=== PATIENT | female | born 1950 | race Caucasian/White ===

== ENCOUNTER → 2017-11-15 09:53 | Outpatient (CLI) | payer MEDICARE, BC, SELFPAY ==
[2017-11-15 12:34] LABS: Absolute Lymphocyte Count 1.42 X10^3/ul (0.83-4.51); Absolute Neutrophil Count 3.7 X10^3/uL (2.0-7.7); Basophil# 0.05 X10^3/uL; Basophil% 0.8 % (0-1); Eosinophils% 3.4 % (0-5); Hemoglobin 14.4 g/dl (12.0-15.0); Lymphocyte # 1.42 X10^3/ul (4.0); Lymphocyte % 23.8 % (19-41); Mean Corp Hgb Conc 34.3 g/gl (32-36); Mean Corpuscular Hgb 33.6 pg (27.0-32.0); Mean Corpuscular Volume 98.1 fL (81-99); Mean Platelet Vol. 10.4 fl (6.2-12.0); Monocyte# 0.57 X10^3/uL; Monocyte% 9.5 % (0-10); Neutrophil # 3.72 X10^3/uL (2.7-7.7); Neutrophil % 62.3 % (47-70); Platelet Count 273 K/mm3 (150-450); RBC Distribution Width CV 13.4 % (11.6-14.6); RBC Distribution Width SD 46.8 fl (35.1-43.9); Red Blood Count 4.28 M/mm3 (4.2-5.4)
[2017-11-15 12:36] LABS: POSITIVE COUNT NO; POSITIVE DIFFERENTIAL NO; POSITIVE MORPHOLOGY NO
[2017-11-15 12:49] LABS: ALB/GLOB Ratio 1.1 RATIO (0.9-2.4); AST(SGOT) 17 U/L (15-37); Alanine Aminotransfer ALT/SGPT 35 U/L (13-56); Albumin, Serum 3.7 g/dL (3.2-5.0); Alkaline Phosphatase 90 U/L (45-117); Anion Gap 7 (5-15); BUN 13 mg/dL (7-18); BUN/Creat Ratio 14.9 RATIO (10-20); Calcium,Total 8.7 mg/dL (8.5-10.1); Chloride 106 mmol/L (98-107); Creatinine, Serum 0.87 mg/dL (0.55-1.02); EST Glomerular Filtration Rate 69 mL/min (>60); Est Glom Filt Rate - Afr Amer 83 mL/min (>60); Globulin 3.4 g/dL (2.2-4.2); Glucose 90 mg/dL (74-106); Potassium 4.2 mmol/L (3.5-5.1); Protein, Total 7.1 g/dL (6.4-8.2); Sodium Level 143 mmol/L (136-145)
== END ==
PROVIDERS: Family Provider Nurse Practitioner; PCP Nurse Practitioner; Visit Provider Internal Medicine Rheumatology
DX: M06.00 Rheumatoid arthritis without rheumatoid factor, unspecified site (principal); Z79.899 Other long term (current) drug therapy; M79.7 Fibromyalgia; M17.0 Bilateral primary osteoarthritis of knee; M18.0 Bilateral primary osteoarthritis of first carpometacarpal joints
CPT/HCPCS: 36415; 80053; 85025

== ENCOUNTER → 2018-11-01 21:43 | Outpatient (CLI) | payer MEDICARE, BC, SELFPAY ==
[2018-11-01 15:04] VITALS: BMI 32.3
[2018-11-01 21:52] LABS: Absolute Lymphocyte Count 1.41 X10^3/ul (0.83-4.51); Absolute Neutrophil Count 3.7 X10^3/uL (2.0-7.7); Basophil# 0.05 X10^3/uL; Basophil% 0.8 % (0-1); Eosinophil# 0.14 X10^3/uL; Eosinophils% 2.4 % (0-5); Hematocrit 41.4 % (37-47); Hemoglobin 14.2 g/dl (12.0-15.0); Lymphocyte # 1.41 X10^3/ul (4.0); Lymphocyte % 23.7 % (19-41); Mean Corp Hgb Conc 34.3 g/gl (32-36); Mean Corpuscular Hgb 33.9 pg (27.0-32.0); Mean Corpuscular Volume 98.8 fL (81-99); Mean Platelet Vol. 10.1 fl (6.2-12.0); Monocyte% 10.1 % (0-10); Neutrophil # 3.72 X10^3/uL (2.7-7.7); Neutrophil % 62.7 % (47-70); Platelet Count 255 K/mm3 (150-450); RBC Distribution Width CV 13.3 % (11.6-14.6); RBC Distribution Width SD 47.7 fl (35.1-43.9); Red Blood Count 4.19 M/mm3 (4.2-5.4); White Blood Count 5.9 K/mm3 (4.4-11.0)
[2018-11-01 21:54] LABS: POSITIVE COUNT NO; POSITIVE DIFFERENTIAL NO; POSITIVE MORPHOLOGY NO
[2018-11-01 22:07] LABS: ALB/GLOB Ratio 1.2 RATIO (0.9-2.4); AST(SGOT) 23 U/L (15-37); Alanine Aminotransfer ALT/SGPT 39 U/L (13-56); Albumin, Serum 3.9 g/dL (3.2-5.0); Alkaline Phosphatase 76 U/L (45-117); Anion Gap 8 (5-15); BUN 16 mg/dL (7-18); BUN/Creat Ratio 17.7 RATIO (10-20); Calcium,Total 8.6 mg/dL (8.5-10.1); Chloride 105 mmol/L (98-107); Cholesterol 133 mg/dL (200); EST Glomerular Filtration Rate 66 mL/min (>60); Est Glom Filt Rate - Afr Amer 80 mL/min (>60); Globulin 3.2 g/dL (2.2-4.2); Glucose 80 mg/dL (74-106); High Density Lipoprotein 50 mg/dL; Protein, Total 7.1 g/dL (6.4-8.2); Sodium Level 142 mmol/L (136-145); Triglycerides 59 mg/dL; Very Low Density Lipoprotein 12 mg/dL (5-40)
== END ==
PROVIDERS: Referring Provider Nurse Practitioner; Visit Provider Nurse Practitioner
DX: E78.5 Hyperlipidemia, unspecified (principal); I10 Essential (primary) hypertension
CPT/HCPCS: 80053; 80061; 85025

== ENCOUNTER → 2019-02-13 08:35 | Outpatient (CLI) | payer MEDICARE, BC, SELFPAY ==
[2019-01-30 15:39] VITALS: BMI 31.8
[2019-02-13 10:06] LABS: Absolute Lymphocyte Count 1.84 X10^3/ul (0.83-4.51); Absolute Neutrophil Count 4.8 X10^3/uL (2.0-7.7); Basophil# 0.08 X10^3/uL; Basophil% 1.1 % (0-1); Eosinophil# 0.17 X10^3/uL; Eosinophils% 2.3 % (0-5); Hematocrit 43.4 % (37-47); Hemoglobin 14.7 g/dl (12.0-15.0); Lymphocyte # 1.84 X10^3/ul (4.0); Lymphocyte % 24.7 % (19-41); Mean Corp Hgb Conc 33.9 g/gl (32-36); Mean Corpuscular Hgb 33.7 pg (27.0-32.0); Mean Corpuscular Volume 99.5 fL (81-99); Mean Platelet Vol. 10.3 fl (6.2-12.0); Monocyte# 0.59 X10^3/uL; Monocyte% 7.9 % (0-10); Neutrophil # 4.77 X10^3/uL (2.7-7.7); Neutrophil % 63.9 % (47-70); Platelet Count 254 K/mm3 (150-450); RBC Distribution Width CV 12.4 % (11.6-14.6); RBC Distribution Width SD 45.2 fl (35.1-43.9); Red Blood Count 4.36 M/mm3 (4.2-5.4); White Blood Count 7.5 K/mm3 (4.4-11.0)
[2019-02-13 10:19] LABS: POSITIVE COUNT NO; POSITIVE DIFFERENTIAL NO; POSITIVE MORPHOLOGY NO
[2019-02-13 10:35] LABS: ALB/GLOB Ratio 1.2 RATIO (0.9-2.4); AST(SGOT) 19 U/L (15-37); Alanine Aminotransfer ALT/SGPT 39 U/L (13-56); Albumin, Serum 3.7 g/dL (3.2-5.0); Alkaline Phosphatase 76 U/L (45-117); Anion Gap 2 (5-15); BUN 10 mg/dL (7-18); BUN/Creat Ratio 10.5 RATIO (10-20); Calcium,Total 8.9 mg/dL (8.5-10.1); Chloride 110 mmol/L (98-107); Creatinine, Serum 0.95 mg/dL (0.55-1.02); EST Glomerular Filtration Rate 63 mL/min (>60); Est Glom Filt Rate - Afr Amer 76 mL/min (>60); Globulin 3.1 g/dL (2.2-4.2); Glucose 107 mg/dL (74-106); Potassium 3.6 mmol/L (3.5-5.1); Protein, Total 6.8 g/dL (6.4-8.2); Sodium Level 142 mmol/L (136-145)
== END ==
PROVIDERS: Family Provider Nurse Practitioner; PCP Nurse Practitioner; Referring Provider Internal Medicine Rheumatology; Visit Provider Internal Medicine Rheumatology
DX: M06.00 Rheumatoid arthritis without rheumatoid factor, unspecified site (principal); Z79.899 Other long term (current) drug therapy; M79.7 Fibromyalgia; M25.511 Pain in right shoulder; M17.0 Bilateral primary osteoarthritis of knee; M18.0 Bilateral primary osteoarthritis of first carpometacarpal joints
CPT/HCPCS: 36415; 80053; 85025

== ENCOUNTER → 2020-11-18 21:43 | Outpatient (CLI) | payer MEDICARE, BC, SELFPAY ==
[2020-08-18 16:25] VITALS: BMI 30.3
[2020-11-18 22:04] LABS: ALB/GLOB Ratio 1.3 RATIO (0.9-2.4); AST(SGOT) 17 U/L (15-37); Alanine Aminotransfer ALT/SGPT 28 U/L (13-56); Albumin, Serum 3.9 g/dL (3.2-5.0); Alkaline Phosphatase 96 U/L (45-117); Anion Gap 4 (5-15); BUN 15 mg/dL (7-18); CRP, High Sensitivity Cardiac 1.21 mg/L; Calcium,Total 8.7 mg/dL (8.5-10.1); Chloride 105 mmol/L (98-107); Creatinine, Serum 0.94 mg/dL (0.55-1.02); EST Glomerular Filtration Rate 63 mL/min (>60); Est Glom Filt Rate - Afr Amer 76 mL/min (>60); Globulin 3.1 g/dL (2.2-4.2); Glucose 108 mg/dL (74-106); Sodium Level 138 mmol/L (136-145)
== END ==
PROVIDERS: PCP Nurse Practitioner; Referring Provider Nurse Practitioner; Visit Provider Nurse Practitioner
DX: I10 Essential (primary) hypertension (principal); R73.9 Hyperglycemia, unspecified
CPT/HCPCS: 80053; 86141

== ENCOUNTER → 2021-01-04 09:56 | Outpatient (CLI) | payer MEDICARE, BC, SELFPAY ==
[2020-11-18 13:32] VITALS: BMI 32.4
[2021-01-04 12:34] LABS: Absolute Lymphocyte Count 1.66 X10^3/uL (0.83-4.51); Absolute Neutrophil Count 3.4 X10^3/uL (2.0-7.7); Basophil# 0.09 X10^3/uL; Basophil% 1.6 % (0-1); Eosinophil# 0.17 X10^3/uL; Eosinophils% 2.9 % (0-5); Hematocrit 43.4 % (37-47); Hemoglobin 14.6 g/dL (12.0-15.0); Lymphocyte # 1.66 X10^3/ul (4.0); Lymphocyte % 28.8 % (19-41); Mean Corp Hgb Conc 33.6 g/dL (32-36); Mean Corpuscular Hgb 32.7 pg (27.0-32.0); Mean Corpuscular Volume 97.1 fL (81-99); Mean Platelet Vol. 10.8 fl (6.2-12.0); Monocyte# 0.39 X10^3/uL; Monocyte% 6.8 % (0-10); NRBC Flagged by Analyzer 0 % (0-5); Neutrophil # 3.44 X10^3/uL (2.7-7.7); Neutrophil % 59.6 % (47-70); Platelet Count 295 K/mm3 (150-450); RBC Distribution Width CV 11.8 % (11.6-14.6); RBC Distribution Width SD 42.5 fl (35.1-43.9); Red Blood Count 4.47 M/mm3 (4.2-5.4); White Blood Count 5.8 K/mm3 (4.4-11.0)
[2021-01-04 13:03] LABS: ALB/GLOB Ratio 1.1 RATIO (0.9-2.4); AST(SGOT) 13 U/L (15-37); Alanine Aminotransfer ALT/SGPT 25 U/L (13-56); Albumin, Serum 3.8 g/dL (3.2-5.0); Alkaline Phosphatase 97 U/L (45-117); Anion Gap 5 (5-15); BUN 12 mg/dL (7-18); BUN/Creat Ratio 13.2 RATIO (10-20); Chloride 105 mmol/L (98-107); Creatinine, Serum 0.91 mg/dL (0.55-1.02); EST Glomerular Filtration Rate 65 mL/min (>60); Est Glom Filt Rate - Afr Amer 79 mL/min (>60); Globulin 3.4 g/dL (2.2-4.2); Glucose 106 mg/dL (74-106); Potassium 3.9 mmol/L (3.5-5.1); Protein, Total 7.2 g/dL (6.4-8.2); Sodium Level 140 mmol/L (136-145)
== END ==
PROVIDERS: PCP Nurse Practitioner; Referring Provider Internal Medicine Rheumatology; Visit Provider Internal Medicine Rheumatology
DX: M06.00 Rheumatoid arthritis without rheumatoid factor, unspecified site (principal); Z79.899 Other long term (current) drug therapy; M79.7 Fibromyalgia; M17.0 Bilateral primary osteoarthritis of knee; M47.892 Other spondylosis, cervical region; M18.0 Bilateral primary osteoarthritis of first carpometacarpal joints
CPT/HCPCS: 36415; 80053; 85025

== ENCOUNTER → 2022-02-28 | Outpatient (CLI) | payer MEDICARE, BC, SELFPAY ==
[2022-02-28 23:16] LABS: ALB/GLOB Ratio 1.3 RATIO (0.9-2.4); AST(SGOT) 17 U/L (15-37); Alanine Aminotransfer ALT/SGPT 29 U/L (13-56); Albumin, Serum 3.9 g/dL (3.2-5.0); Alkaline Phosphatase 82 U/L (45-117); Anion Gap 8 (5-15); BUN 11 mg/dL (7-18); BUN/Creat Ratio 12.1 RATIO (10-20); Calcium,Total 8.9 mg/dL (8.5-10.1); Chloride 106 mmol/L (98-107); Cholesterol 163 mg/dL (200); Creatinine, Serum 0.91 mg/dL (0.55-1.02); EST Glomerular Filtration Rate 65 mL/min (>60); Est Glom Filt Rate - Afr Amer 79 mL/min (>60); Globulin 3.1 g/dL (2.2-4.2); Glucose 112 mg/dL (74-106); High Density Lipoprotein 64 mg/dL; Potassium 3.6 mmol/L (3.5-5.1); Sodium Level 139 mmol/L (136-145); Triglycerides 180 mg/dL; Very Low Density Lipoprotein 36 mg/dL (5-40)
== END | disposition home or self-care (01) ==
PROVIDERS: PCP Nurse Practitioner; Referring Provider Nurse Practitioner; Visit Provider Nurse Practitioner
DX: I10 Essential (primary) hypertension (principal)
CPT/HCPCS: 80053; 80061

== ENCOUNTER → 2022-10-05 | Outpatient (CLI) | payer MEDICARE, BC, SELFPAY ==
[2022-10-05 22:38] LABS: Vitamin B12 463 pg/mL (211-911)
[2022-10-05 22:41] LABS: ALB/GLOB Ratio 1.2 RATIO (0.9-2.4); AST(SGOT) 18 U/L (15-37); Alanine Aminotransfer ALT/SGPT 33 U/L (13-56); Alkaline Phosphatase 83 U/L (45-117); Anion Gap 8 (5-15); BUN 15 mg/dL (7-18); BUN/Creat Ratio 16.9 RATIO (10-20); Calcium,Total 8.8 mg/dL (8.5-10.1); Chloride 104 mmol/L (98-107); Creatinine, Serum 0.89 mg/dL (0.55-1.02); EST Glomerular Filtration Rate 67 mL/min (>60); Est Glom Filt Rate - Afr Amer 81 mL/min (>60); Globulin 3.4 g/dL (2.2-4.2); Glucose 97 mg/dL (74-106); Protein, Total 7.4 g/dL (6.4-8.2); Sodium Level 140 mmol/L (136-145); Thyroid Stim Hormone (TSH) 0.79 uIU/mL (0.358-3.74)
[2022-10-07 15:08] LABS: Endomysial Antibody IgA Negative (Negative)
[2022-10-07 17:15] LABS: Deamidated Gliadin IgA 4 units (0-19); Deamidated Gliadin IgG 6 units (0-19); Immunoglobulin A 229 mg/dL (87-352); t-Transglutaminase IgA <2 U/mL (0-3)
== END | disposition home or self-care (01) ==
PROVIDERS: PCP Nurse Practitioner; Visit Provider Nurse Practitioner
DX: K21.9 Gastro-esophageal reflux disease without esophagitis (principal); E53.8 Deficiency of other specified B group vitamins; I10 Essential (primary) hypertension; R19.7 Diarrhea, unspecified; R63.5 Abnormal weight gain; R73.9 Hyperglycemia, unspecified
CPT/HCPCS: 80053; 82607; 82784; 83036; 83516; 84443; 86255

== ENCOUNTER → 2023-03-23 | Outpatient (CLI) | payer MEDICARE, BC, SELFPAY ==
[2023-03-23 20:53] LABS: Absolute Lymphocyte Count 1.83 X10^3/uL (0.83-4.51); Absolute Neutrophil Count 3.9 X10^3/uL (2.0-7.7); Basophil# 0.08 X10^3/uL; Basophil% 1.2 % (0-1); Eosinophil# 0.16 X10^3/uL; Eosinophils% 2.5 % (0-5); Hematocrit 40.1 % (37-47); Lymphocyte # 1.83 X10^3/ul (0.83-4.51); Lymphocyte % 28.4 % (19-41); Mean Corp Hgb Conc 34.9 g/dL (32-36); Mean Corpuscular Hgb 32.6 pg (27.0-32.0); Mean Corpuscular Volume 93.3 fL (81-99); Mean Platelet Vol. 11.5 fl (6.2-12.0); Monocyte# 0.48 X10^3/uL; Monocyte% 7.4 % (0-10); NRBC Flagged by Analyzer 0 % (0-5); Neutrophil # 3.88 X10^3/uL (2.7-7.7); Neutrophil % 60.2 % (47-70); Platelet Count 240 K/mm3 (150-450); RBC Distribution Width SD 41.3 fl (35.1-43.9); White Blood Count 6.5 K/mm3 (4.4-11.0)
[2023-03-23 21:16] LABS: ALB/GLOB Ratio 1.1 RATIO (0.9-2.4); AST(SGOT) 17 U/L (15-37); Alanine Aminotransfer ALT/SGPT 23 U/L (13-56); Albumin, Serum 3.7 g/dL (3.2-5.0); Alkaline Phosphatase 87 U/L (45-117); Anion Gap 7 (5-15); BUN 11 mg/dL (7-18); BUN/Creat Ratio 12.2 RATIO (10-20); Calcium,Total 8.8 mg/dL (8.5-10.1); Chloride 107 mmol/L (98-107); Cholesterol 128 mg/dL (200); EST Glomerular Filtration Rate 65 mL/min (>60); Est Glom Filt Rate - Afr Amer 79 mL/min (>60); Globulin 3.3 g/dL (2.2-4.2); Glucose 128 mg/dL (74-106); High Density Lipoprotein 62 mg/dL; Potassium 3.6 mmol/L (3.5-5.1); Sodium Level 140 mmol/L (136-145); Thyroid Stim Hormone (TSH) 0.89 uIU/mL (0.358-3.74); Triglycerides 145 mg/dL; Very Low Density Lipoprotein 29 mg/dL (5-40)
== END | disposition home or self-care (01) ==
PROVIDERS: PCP Nurse Practitioner; Referring Provider Nurse Practitioner; Visit Provider Nurse Practitioner
DX: I10 Essential (primary) hypertension (principal); R63.5 Abnormal weight gain; K21.9 Gastro-esophageal reflux disease without esophagitis; E55.9 Vitamin D deficiency, unspecified; J40 Bronchitis, not specified as acute or chronic
CPT/HCPCS: 80053; 80061; 82652; 84443; 85025

== ENCOUNTER → 2023-10-27 | Outpatient (CLI) | payer MEDICARE, BC, SELFPAY ==
--- OUTSIDE RECORDS SUMMARY | 2023-10-27 20:49 | XMS RPT_ITS | CCD ---
Author Name Unknown Address [id number] [place] [address] Organization [facility] Care Team Providers Care Order Analyst Name Role Phone CHESTERLARRY Unavailable Unavailable [facility] Unavailable Unavailable AMANDA, RENY Unavailable Unavailable Amanda, Reny L Unavailable Unavailable Unavailable Amanda PIGMENT PROCESSOR.CUSTOMER ORDER CLERK, Reny L Primary Care Provide r Amanda PIGMENT PROCESSOR.CUSTOMER ORDER CLERK, Reny L Primary Care Provide r Amanda PIGMENT PROCESSOR.CUSTOMER ORDER CLERK, Reny L Primary Care Provide r Ms. Tahira Villalobos Attending Dr. Teresa Ortiz Referring Unavail able Amanda, Ms. Reny L Primary Care Unavailab le AMANDA, RENY L Primary Care Unavailable VELLANKI, LON L Referring Unavailable AMANDA, RENY L Primary Care Unavailable VELLANKI, LON L Referring Unavailable AMANDA, RENY L Primary Care Unavailable AMANDA, RENY L Primary Care Unavailable AMANDA, RENY L Primary Care Unavailable TARIK MAX Referring Unavailable AMANDA, RENY L Primary Care Unavailable VELLANKI, LON L Referring Unavailable Allergies Allergy Classification Reported Allergen(s) Allergy Type Date of Onset Reaction(s) Facility (8 sources) cephalexin; Translations: [CEPHALEXIN] Drug Allergy 10-31-2013 Unknown [facility] Repository (8 sources) iodine; Translations: [IODINE] Drug Allergy 12-07-2011 Unknown [facility] Repository Medications Completed/Discontinued Medications Medication Drug Class(es) Dates Sig (Normalized) Sig (Original) 0.8 ml adalimumab 50 mg/ml auto-injector (8 sources) Tumor Necrosis Factor Tr Start: 03-06-2015 HUMIRA PEN 40 mg/0.8 mL pnkt Problems Active Problems Problem Classification Problem Date Documented Date Episodic/Chronic Genitourinary symptoms and ill-defined conditions (6 sources) Female stress incontinence; Translations: [Stress incontinence (female) (male)] Onset: 10-31-2013 10-31-2013 Chronic Menopausal disorders (13 sources) Menopausal symptom; Translations: [Menopausal and female climacteric states] Onset: 10-31-2013 Chronic Osteoarthritis (5 sources) Polyosteoarthritis, unspecified; Translations: [Unilateral primary osteoarthritis of first carpometacarpal joint, right hand] Onset: 11-28-2022 Chronic Osteoporosis (7 sources) Senile osteoporosis; Translations: [Age-related osteoporosis without current pathological fracture] Onset: 12-31-2021 Chronic Other aftercare (2 sources) Other termination clerk (current) drug therapy; Translations: [On angiotensin receptor blockers (ARB)] Onset: 08-30-2022 Episodic Other connective tissue disease (2 sources) Fibromyalgia; Translations: [Scapulohumeral fibrositis] Onset: 11-28-2022 Episodic Other ear and sense organ disorders (4 sources) Sensorineural hearing loss, bilateral; Translations: [Sensorineural hearing loss, bilateral] Chronic Other ear and sense organ disorders (6 sources) Chronic otitis externa; Translations: [Unspecified chronic otitis externa, unspecified ear] Onset: 01-09-2012 01-09-2012 Chronic Other ear and sense organ disorders (6 sources) Hearing loss; Translations: [Unspecified hearing loss, unspecified ear] Onset: 01-09-2012 01-09-2012 Chronic Other ear and sense organ disorders (1 source) Sensorineural hearing loss, bilateral; Translations: [Sensorineural hearing loss, bilateral] Onset: 05-09-2023 Chronic Other female genital disorders (1 source) Superficial pain on intercourse; Translations: [Superficial (introital) dyspareunia] Chronic Other female genital disorders (1 source) Vaginal dryness; Translations: [Other specified noninflammatory disorders of vagina] Episodic Rheumatoid arthritis and related disease (3 sources) Rheumatoid arthritis without rheumatoid factor, unspecified site; Translations: [Seronegative rheumatoid arthritis (HCC)] Onset: 08-30-2022 Chronic Spondylosis; intervertebral disc disorders; other back problems (1 source) Other spondylosis, cervical region; Translations: [Other spondylosis, cervical region] Onset: 11-28-2022 Chronic Sprains and strains (2 sources) Disorder of thoracic segment of trunk; Translations: [Sprain of thoracic] Episodic Unclassified (1 source) Unknown / UNK(Unknown) Onset: 11-22-2017 Past or Other Problems Problem Classification Problem Date Documented Da te Episodic/Chronic Mood disorders (6 sources) Mood swings; Translations: [Emotional lability] Onset: 01-15-2014 01-15-2014 Episodic Other ear and sense organ disorders (8 sources) Impacted cerumen; Translations: [Impacted cerumen] Onset: 01-09-2012 01-09-2012 Episodic Other screening for suspected conditions (not mental disorders or infectious disease) (9 sources) Decreased testosterone level ; Translations: [Other specified abnormal findings of blood chemistry] Onset: 01-07-2015 01-07-2015 Episodic Other skin disorders (6 sources) Scar; Translations: [Scar conditions and fibrosis of skin] Onset: 06-16-2014 06-16-2014 Episodic Residual codes; unclassified (13 sources) Reduced libido; Translations: [Decreased libido] Onset: 10-31-2013 Episodic Unclassified (1 source) Other hammer toe(s) (acquired), right foot Onset: 11-22-2017 Results Test Name Value Interpretation Reference Range Facil ity Encounters Encounter Date Encounter Type Care Provider Facility Start: 10-26-2023 Refill Tarik marquez MD Work Phone: Obstetrics/Gynecology Procedures Date Procedure Procedure Detail Performing Clinician Start: 11-26-2021 Mammography Tarik rutherford MD Work Phone: Start: 12-17-2013 Lipid 1996 panel - S willam or Plasma Tarik Max MD Work Phone: Plan of Treatment Date Care Activity Detail Author Start: 06-04-2028 Urine microalbumin profile [facility] Start: 08-22-2026 Diabetes Screening Diabetes Screening [facility] Start: 02-28-2026 DIABETES SCREEN DIABETES SCREEN [facility] Start: 11-28-2025 DIABETES SCREEN DIABETES SCREEN [facility] Start: 06-13-2025 DIABETES SCREEN DIABETES SCREEN [facility] Start: 12-15-2024 DIABETES SCREEN DIABETES SCREEN [facility] Start: 02-29-2024 Screening for malignant neoplasm of breast Mammogram Screening [facility] Start: 09-25-2023 Advance Directive Discussion Advance Directive Discussion [facility] Start: 09-25-2023 Depression Assessment Depression Assessment [facility] Start: 05-26-2023 Covid-19 Vaccine () Covid-19 Vaccine () [facility] Start: 11-26-2022 Mammography MAMMOGRAM [facility] Start: 09-25-2022 ADVANCE DIRECTIVE DISCUSSION ADVANCE DIRECTIVE DISCUSSION [facility] Start: 09-25-2022 DEPRESSION ASSESSMENT DEPRESSION ASSESSMENT [facility] Start: 05-26-2022 Influenza vaccination INFLUENZA (#1) [facility] Start: 05-10-2022 CIADVANCED, Provider: Yajaira Weinstein, Status: Pen, Time: 1:00 PM CIADVANCED, Provider: Yajaira Weinstein, Status: Pen, Time: 1:00 PM [id number] Work Phone: Start: 02-04-2022 End: 03-16-2022 Basic metabolic 2000 panel - Serum or Plasma BASIC METABOLIC PNL Lab Routine Senile osteoporosis Expected: 02/04/2022 (Approximate), Expires: 03/16/2022 [facility] Work Phone: Immunizations Immunization Date Immunization Notes Care Provider Adams barton 06-04-2018 tetanus toxoid, redu francisco diphtheria toxoid, and acellular pertussis vaccine, adsorbed Tarik Max MD Work Phone: [facility] Payers Date Payer Category Payer Medicare MEDICARE MEDICAR E A AND B [id number] 2013-Present [phone] [place] [address] Medicare [id number] 2013 Medicare MEDICARE MEDICAR E A AND B [id number] 2013-Present [phone] [place] [address] Medicare [id number] 2013 Medicare [id number] 2009 Unknown 2009 Unknown BRITTANY BRITTANY BC BS FEP PPO [id number] 2009-Present [phone] [address] [place] [address] PPO [id number] 2009 Unknown [id number] 1950 Unknown [id number] Medicare [id number] Social History Date Type Detail Facility Start: 12-31-2021 End: 02-28-2023 Drinks wine Drinks wine [facility] Start: 12-31-2021 Alcohol intake Current drinke r of alcohol (finding) [facility] Start: 1950 Sex Assigned At Not on file [facility] Start: 12-05-2021 End: 06-13-2022 Exposure to SARS-CoV-2 (event) Not sure [facility] Start: 12-31-2021 End: 02-28-2023 Tobacco use panel [facility] PHQ2 Score 0 [facility] c Clinical Notes 11-26-2021 to 02-28-2023 NAINA EstradaR) - 02/28/2023 11:00 AM EDTAddendum Note - Faina Kearns RN - 01/23/2023 9:40 AM EDTTelephone Encounter - Faina Kearns RN - 01/23/2023 9:40 AM EDTPatient Instructions Note Date & Type Note Facility 02-28-2023 Note HNO ID: [id number] Author: SHERWIN Estrada) Service: Radiology Author Type: Technologist Type: Progress Notes Filed: 02/28/2023 11:11 AM Note Text: Radiology Service Progress Note PATIENT NAME: Yeison Grover DATE OF SERVICE: February 28, 2023 TIME: 11:11 AM PATIENT IDENTITY VERIFICATION COMPLETED USING TWO (2) IDENTIFIERS: Name and Date of confirmed by patient verbally. FALL SCREENING: Has the patient had 2 falls in the last year or 1 fall with injury or currently using an Ambulatory Assistive Device (Walker, Cane, Wheelchair, Crutches, etc.)? No PATIENT GENDER DATA: Female. status: : No status: N/A PATIENT RELEVANT IMPLANT DATA REVIEWED: Not Applicable RADIOLOGY DEPARTMENT: Mammography PERIPHERAL IV DATA: Not applicable SIGNED BY: RT Sean(R) February 28, 2023 11:11 AM [facility] 02-28-2023 History of Presen t illness Narrative Radiology Service Progress Note PATIENT NAME: Yeison Grover DATE OF SERVICE: February 28, 2023 TIME: 11:11 AM PATIENT IDENTITY VERIFICATION COMPLETED USING TWO (2) IDENTIFIERS: Name and Date of confirmed by patient verbally. FALL SCREENING: Has the patient had 2 falls in the last year or 1 fall with injury or currently using an Ambulatory Assistive Device (Walker, Cane, Wheelchair, Crutches, etc.)? No PATIENT GENDER DATA: Female. status: : No status: N/A PATIENT RELEVANT IMPLANT DATA REVIEWED: Not Applicable RADIOLOGY DEPARTMENT: Mammography PERIPHERAL IV DATA: Not applicable SIGNED BY: RT Sean(Esperanza) February 28, 2023 11:11 AM documented in this encounter [facility] 01-23-2023 Miscellaneous Notes Addended by: FAINA KEARNS on: 01/23/2023 09:40 AM Modules accepted: Orders Order placed for Mammogram with jazmine. Faina Kearns RN Yeison needs an order for Mammogram. Thank you Emily De documented in this encounter [facility] 01-31-2022 Miscellaneous Notes Lai Warren, I just spoke to her. I apologize. Now she wants to do her own research before scheduling. I told her to let me know and then I will call you for scheduling. Faina Kearns RN Received a message from our Infusion Nurses to schedule Patient for her Reclast. When I called her just now, she was confused and had many questions that she said a nurse would call her and answer them for her. She declined to schedule an appointment until she spoke to a nurse. Can someone clinical call her to address her questions and then let me know and I can work to get her scheduled? Thanks, Irwin documented in this encounter [facility] 12-31-2021 Instructions Tarik Max MD - 12/31/2021 4:35 PM EDT Reclast (zoledronic acid) What is Reclast? Reclast is a medicine used to treat osteoporosis. Reclast strengthens bones by increasing bone mass, which decreases the chance of breaking bones (fractures). It belongs to a class of medicines known as bisphosphonates. Other bisphosphonates are Fosamax (alendronate), Actonel (risedronate), Boniva (ibandronate) and Aredia (pamidronate). What is Osteoporosis? Osteoporosis is thinning and weakness of bone. Throughout life, the body keeps bones strong by replacing old bone with new bone. In osteoporosis, however, the body removes bone faster than it is made. The result is bone loss and weakening. Weak bones are more likely to break. Osteoporosis is common in women after menopause and with increasing age. Other risk factors for osteoporosis are: A. white or oriental race B. slender stature (low weight relative to height) C. a family member with osteoporosis D. low calcium intake E. low vitamin D intake F. lack of weight-bearing exercise G. alcohol in excess H. cigarette smoking I. medicines that cause bone loss, like prednisone taken for >3 months Like high blood pressure, osteoporosis causes no symptoms. Persons with osteoporosis are more likely to break (fracture) their bones. Fractures most often occur in the hip, spine or wrist bones. Some spine fractures are painless but cause a gradual loss of height. More often, spine fractures are painful and cause severe disability. Fracture of osteoporotic bone can occur with only minimal injury, such fractures are called fragility fractures. Osteoporotic fractures can also occur with no injury at all, these are called spontaneous fractures. IMPORTANT: Reclast strengthens bone and decreases the risk of both fragility and spontaneous fractures. Reclast decreases fracture risk in the spine, hip and forearm. Reclast increases survival when given to patients who had had a recent hip fracture. Summary: No other bisphosphonate drug is as effective as Reclast. What are the ingredients of Reclast? Active ingredient: zoledronic acid, 5 mg per dose Inactive ingredients: mannitol, ASSISTED; sodium citrate; water How will I receive Reclast? Reclast is given by infusion into a vein (IV) that takes at least 30 minutes. Reclast is always infused by your doctor or nurse. Drink at least 2 glasses of fluid (such as water), within a few hours before receiving Reclast, as directed by your doctor. You may eat normally before your infusion. Reclast (zoledronic acid, 5 mg) is given only once a year. Before or after Reclast, your doctor may order a bone mineral density test to check your osteoporosis. What should I tell my doctor before receiving Reclast? Reclast may not be right for you if you: have kidney problems have a history of low blood calcium are not able to take daily calcium and vitamin D supplements had parathyroid or thyroid surgery (these glands are located in your neck) had sections of your intestine removed have asthma (wheezing) from taking aspirin have a planned dental surgery such as tooth extraction or implantation Tell your doctor about all the medicines you take, including prescription and nonprescription drugs, herbal supplements and vitamins. Some medicines may increase your chance for low blood calcium levels or kidney problems when used with Reclast. Especially tell your doctor if you are taking: Zometa: this is zoledronic acid, 4 mg a diuretic or water pill ; there are different kinds an antibiotic - Certain antibiotics called aminoglycosides may increase the effect of Reclast in lowering your blood calcium for a long period of time. What are the possible side effects of Reclast? Low blood calcium (hypocalcemia) - Symptoms may include numbness or tingling feeling (especially in the area around the mouth) or muscle spasms. Call your doctor right away if you notice any of these symptoms after receiving Reclast. Kidney problems - Your kidney function will be checked by a blood test before and several days after each dose of Reclast. You cannot receive Reclast if your kidney function is severely impaired. Reclast can cause kidney injury in normal persons if given too rapidly (10 minutes or less) and this risk is increased in persons with impaired kidney function. When kidney injury occurs, it is almost always reversible within 2-3 weeks after infusion. To decrease any risk to your kidneys, you should not take diuretics (water pills) within 48 hours of Reclast infusion. It is important to drink at least 2 glasses of liquid a few hours before receiving Reclast and you will receive 8 ounces of salt water by vein before Reclast is given. Jaw-bone problems (osteonecrosis of the jaw) - Jaw-bone injury has occurred in some patients who received zoledronic acid (as Zometa, 4 mg) multiple times over several months. These patients were treated with zoledronic acid for cancer that had spread to bone and caused a serious increase in blood calcium. Most (>70%) of the jaw injuries occurred in patients who had a tooth extraction or tooth implants after receiving zoledronic acid (Zometa) for hypercalcemia and cancer. There was NO jaw injury (osteonecrosis) in ~5000 patients treated with zoledronic acid (Reclast, 5 mg) for osteoporosis. You should not receive Reclast if you have had recent tooth extractions or dental implants, or if you are considering extractions or implants within six months after Reclast. Muscle, bone and joint pain, fever - A flu-like illness, fever, pain in your muscles or joints and headache can develop 1-2 days after Reclast infusion. A mild pain reliever such as ibuprofen or acetaminophen can reduce these symptoms. In a small percent of patients with Reclast flu joint and muscle pain can be severe and a stronger pain medication is necessary. The chance of getting these side effects decreases when Reclast treatment is repeated in a year. Irregular heartbeat - There might be a slight increased risk of developing an irregular heart rhythm called atrial fibrillation. In one large study of Reclast, there was ~ 2-fold increase in atrial fibrillation compared to placebo (salt water) but in another large study, there was no increase in atrial fibrillation. Ask your doctor if you have concerns about atrial fibrillation, or tell your doctor if you have heart palpitations. Immediate reactions - Some patients experience mild nausea or headache during the infusion of Reclast. These symptoms are treatable and transient. RARELY, zoledronic acid has caused acute shortness of breath, rapid heartbeat, hives, lightheadedness, itching and a drop in blood pressure. Inform the nurse or doctor immediately if you experience any of these symptoms during the infusion of Reclast. Miscellaneous - These are not all possible side effects of Reclast. If you have questions, talk to your doctor. Tell your doctor about a possible side effect that bothers you or does not go away. For more information, go to [email or web address] or call . documented in this encounter [facility] 12-31-2021 History of Presen t illness Narrative Yeison Grover is a 71 year old female who presents for a follow up for telephone encounter for the following issues:. 3 month follow up HRT call around 10:00 ok with phone follow up. wants to talk about bone density Vagifem twice a week since July. Estrace 1 mg daily since July Prior [facility] Subjective: No hot flashes, No night sweats. Vaginal dryness. Current Outpatient Medications on File Prior to Visit Medication Sig Estradiol (VAGIFEM) 10 mcg vaginal tablet Use 1 tablet vaginally two times a week. INTO LOWER 1/3 OF VAGINA TWICE A WEEK. estradiol (ESTRACE) 1 mg tablet Take 1 tablet by mouth once daily. ergocalciferol 50,000 unit capsule (VITAMIN D2, DRISDOL) Take one capsule by mouth twice weekly diltiazem CD (CARDIZEM CD, CARTIA XT) 180 mg 24 hr capsule HUMIRA PEN 40 mg/0.8 mL pnkt BUPROPION XL 300 mg 24 hr tablet Take 300 mg by mouth once daily. LOSARTAN 100 mg tablet OMEPRAZOLE 20 mg capsule lansoprazole (PREVACID) 15 mg ORAL capsule Take 15 mg by mouth once daily. hydroxychloroquine (PLAQUENIL) 200 mg ORAL tablet Take by mouth once daily. folic acid 1 mg ORAL tablet Take 1 mg by mouth once daily. methotrexate 2.5 mg ORAL tablet Take by mouth one time only. No current facility-administered medications on file prior to visit. PAST MEDICAL HISTORY Diagnosis Date Cystocele Hard of hearing Cochlear imlant Low testosterone level in female 01/07/2015 Nocturia Rheumatoid arthritis(714.0) AMAYA (stress urinary incontinence, female) Urethral instability Vaginal atrophy Being treated with Vagifem PAST SURGICAL HISTORY Procedure Laterality Date CHOLECYSTECTOMY HX 2011 Dr. Wiley. IMPLANT COCHLEAR DEVICE 05/2012 bilateral SOILA W/WO REMOVAL TUBE OVARY 2003 No family history on file. Social History Tobacco Use Smoking status: Never Smoker Smokeless tobacco: Never Used Substance Use Topics Alcohol use: Yes Comment: social Drug use: No Objective: There were no vitals taken for this visit. No LMP recorded (lmp unknown). Patient has had a hysterectomy. ALLERGIES Allergen Reactions Contrast Dye [Iodin* Unknown Keflex [Cephalexin] Unknown Bone density: RESULTS: Lumbar spine (L1-L4): 1.296 g/cm2 , T-score 1., Z-score 1.8 . Left Femoral Neck: 0.617 g/cm2 , T-score-3., Z-score-1.9 . This is 0.094 g/sq cm worse Left Total Hip: 0.838 g/cm2 , T-score-1.3, Z-score -0.5 . Right Femoral Neck: 0.75 g/cm2 , T-score -2.1, Z-score-1. . This is not significantly changed Right Total Hip: 0.912 g/cm2 , T-score-0.8, Z-score 0.1 . Prior bone density 2019 THE LOWEST T-SCORE IS -2.4 IN THE LEFT HIP 1) DIAGNOSIS (based on BMD alone): OSTEOPENIA Assessment: 1) new onset transition to osteoporosis 2) postmenopausal issues related to hot flashes night sweats vaginal dryness and impact on libido 3) off of Estratest and overall doing okay on estradiol 1 mg 4) has forgotten Vagifem at times resulting in vaginal dryness Plan: 1) we will pursue consultation with infusion therapy regarding Reclast 2) discussed Reclast with the patient at length 3) increase Vagifem to 3 times a week through December then twice a week in January 4) follow-up for response to treatment I spent a total of 22 minutes on the date of the service which included preparing to see the patient via telephone encounter, completing clinical documentation, obtaining and/or reviewing separately obtained history, counseling and educating the patient/family/caregiver, ordering medications, tests, or procedures and communicating with other HCPs (not separately reported). Tarik Max MD documented in this encounter [facility] 12-06-2021 Note HNO ID: [id number] Author: MATTHIAS Reed Service: Radiology Author Type: Technologist Type: Progress Notes Filed: 12/06/2021 11:01 AM Note Text: Radiology Service Progress Note PATIENT NAME: Yeison Grover DATE OF SERVICE: December 06, 2021 TIME: 11:01 AM PATIENT IDENTITY VERIFICATION COMPLETED USING TWO (2) IDENTIFIERS: Name and Date of confirmed by patient verbally. FALL SCREENING: Has the patient had 2 falls in the last year or 1 fall with injury or currently using an Ambulatory Assistive Device (Walker, Cane, Wheelchair, Crutches, etc.)? No PATIENT GENDER DATA: Female. status: : No status: NO. PATIENT RELEVANT IMPLANT DATA REVIEWED: Not Applicable RADIOLOGY DEPARTMENT: Bone Density PERIPHERAL IV DATA: Not applicable SIGNED BY: MATTHIAS Reed December 06, 2021 11:[address] [facility] 11-26-2021 Note HNO ID: [id number] Author: MATTHIAS Dunacn Service: Radiology Author Type: Technologist Type: Progress Notes Filed: 11/26/2021 10:54 AM Note Text: Radiology Service Progress Note PATIENT NAME: Yeison Grover DATE OF SERVICE: November 26, 2021 TIME: 10:54 AM PATIENT IDENTITY VERIFICATION COMPLETED USING TWO (2) IDENTIFIERS: Name and Date of confirmed by patient verbally. FALL SCREENING: Has the patient had 2 falls in the last year or 1 fall with injury or currently using an Ambulatory Assistive Device (Walker, Cane, Wheelchair, Crutches, etc.)? No PATIENT GENDER DATA: Female. status: : No status: NO. PATIENT RELEVANT IMPLANT DATA REVIEWED: Not Applicable RADIOLOGY DEPARTMENT: Mammography PERIPHERAL IV DATA: Not applicable SIGNED BY: MATTHIAS Duncan November 26, 2021 10:[address] [facility] Diagnosis [facility]counter for screening mammogram for malignant neoplasm of breast- Primary Other screening mammogram [facility] [place] [facility] Diagnosis Encounter for screening mammogram for malignant neoplasm of breast Other screening mammogram [facility] this [facility] Narrative* Yeison Grover, age 71 years, was seen on today for her bilateral stimulation and programming ofher Nucleus CI24RE (CA) [place] cochlear implant (serial# [id number] & [id number]), usedin conjunction with [id number] ear level speech processors. * Ramone has history of progressive sensorineural hearing loss bilaterally since her twenties. Ms. 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 Post-operative course remains unremarkable. Today, she reports continued success with her cochlear implants. * Patient's preferred language: Citizen Of [place] * Preferred language of the parent, legal guardian or surrogate decision-maker of this minor or incapacitated patient: Not Applicable * No overt signs of domestic violence/neglect/abuse. * No referral made to [facility]. * Pain not interfering with optimal level of function or ability to assess and/or treat. * Pain Scale rank: 0/10 * Pain Scale used: Numeric * No referral made to primary care provider (PCP). * Factors/Barriers influencing patient's ability to complete assessment or learn: none. * Person taught: patient. * Readiness to learn: no barriers. * Results of Teaching/Counseling: verbalize recall / understanding and teaching complete. [id number] Work Phone: History of Present illness Narrative* Yeison Grover, age 73 years, was seen on today for her bilateral stimulation and programming ofher Nucleus CI24RE (CA) [place] cochlear implant (serial# [id number] & [id number]), usedin conjunction with [id number] ear level speech processors. 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 Ms. 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 Post-operative course remains unremarkable. Today, she reports continued success with her cochlear implants. * Patient's preferred language: Citizen Of [place] * Preferred language of the parent, legal guardian or surrogate decision-maker of this minor or incapacitated patient: Not Applicable * No overt signs of domestic violence/neglect/abuse. * No referral made to [facility]. * Pain not interfering with optimal level of function or ability to assess and/or treat. * Pain Scale rank: 0/10 * Pain Scale used: Numeric * No referral made to primary care provider (PCP). * Factors/Barriers influencing patient's ability to complete assessment or learn: none. * Person taught: patient. * Readiness to learn: no barriers. * Results of Teaching/Counseling: verbalize recall / understanding and teaching complete. [id number] Work Phone: Reason for referral (narrative)* Diagnostic Procedure Only (Routine) - Pending Review Specialty Diagnoses / Procedures Referred By Eber t Referred To Contact [facility] Diagnoses Encounter for screening mammogram for malignant neoplasm of breast Procedures ARETHA SCREENING W JAZMINE SCREENING DIGITAL BREAST TOMOSYNTHESIS BI SCREENING MAMMOGRAPHY BI 2-VIEW BREAST INC CAD Tarik Max MD [address] [address] [facility] [address] [place] [address] Referral ID Status Reason Start Date Expiration Date Visits Requested Visits Authorized [id number] Pending Review Auto-Generat ed Referral 01/23/2023 02/22/2024 1 1 [facility] for referral (narrative)* Diagnostic Procedure Only (Routine) - Closed Specialty Diagnoses / Procedures Referred By Eber spaulding Referred To Contact [facility] Diagnoses Encounter for screening mammogram for malignant neoplasm of breast Procedures ARETHA SCREENING W JAZMINE SCREENING DIGITAL BREAST TOMOSYNTHESIS BI SCREENING MAMMOGRAPHY BI 2-VIEW BREAST INC Tarik Escobedo MD [address] [address] [facility] [address] [place] [address] Referral ID Status Reason Start Date Expiration Date V isits Requested Visits Authorized [id number] Closed Auto-Generate d Referral 01/23/2023 02/22/2024 1 1 [facility] for visit Narrative* Diagnostic Procedure Only (Routine) - Closed Specialty Diagnoses / Procedures Referred By Eber spaulding Referred To Contact [facility] Diagnoses Encounter for screening mammogram for malignant neoplasm of breast Procedures ARETHA SCREENING W JAZMINE SCREENING DIGITAL BREAST TOMOSYNTHESIS BI SCREENING MAMMOGRAPHY BI 2-VIEW BREAST INC CAD Tarik Max MD [address] [address] [facility] [address] [place] [address] Referral ID Status Reason Start Date Expiration Date V isits Requested Visits Authorized [id number] Closed Auto-Generate d Referral 01/23/2023 02/22/2024 1 1 [facility] Summary Purpose Family History Unknown Family Member Name Dates Details No pertinent family history: Other(V49.89, Z78.9) Status:Active Unknown Family Member Name Dates Details No pertinent family history: Other(V49.89, Z78.9) Status:Active Advance Directives Documents on File Type Date Recorded 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 DATE CREATED AUTHOR AUTHOR'S ORGANIZ ATION 03/05/2023 [facility] DATE CREATED AUTHOR AUTHOR'S ORGANIZ ATION 05/10/2023 [facility] DATE CREATED AUTHOR AUTHOR'S ORGANIZ ATION 05/12/2023 [facility] DATE CREATED AUTHOR AUTHOR'S ORGANIZ ATION 08/24/2023 [facility] Source Comments (unrecognize d section and content) In the event this informatio n is protected by the Federal Confidentiality of Alcohol and Drug Abuse Patient Records regulations: The Federal rules restrict any use of the information to criminally investigate or prosecute any alcohol or drug abuse patient.[facility] the event this information is protected by the Federal Confidentiality of Alcohol and Drug Abuse Patient Records regulations: The Federal rules restrict any use of the information to criminally investigate or prosecute any alcohol or drug abuse patient.[facility] Hospital[facility] the event this information is protected by the Federal Confidentiality of Alcohol and Drug Abuse Patient Records regulations: The Federal rules restrict any use of the information to criminally investigate or prosecute any alcohol or drug abuse patient.[facility] Hospital[facility] the event this information is protected by the Federal Confidentiality of Alcohol and Drug Abuse Patient Records regulations: The Federal rules restrict any use of the information to criminally investigate or prosecute any alcohol or drug abuse patient.[facility] Hospital[facility] the event this information is protected by the Federal Confidentiality of Alcohol and Drug Abuse Patient Records regulations: The Federal rules restrict any use of the information to criminally investigate or prosecute any alcohol or drug abuse patient.[facility] Hospital[facility] the event this information is protected by the Federal Confidentiality of Alcohol and Drug Abuse Patient Records regulations: The Federal rules restrict any use of the information to criminally investigate or prosecute any alcohol or drug abuse patient.[facility] Reason for Visit (unrecogniz ed section and content) Reason Comments Questions about Reclast Reason Comments Refill Request Reason Comments Orders Reason Onset Date Comments Refill Request 10/26/2023 Care Teams (unrecognized sec tion and content) Order Analyst Relationship Specialty Start Date End Date Reny Amanda, NADEEN.CUSTOMER ORDER CLERK [address] [facility] [address] [place] [address] PCP - General Family Practice 08/12/15 Order Analyst Relationship Specialty Start Date End Date Reny Amanda, PIGMENT PROCESSOR.CUSTOMER ORDER CLERK [address] [place] [address] PCP - General Family Practice 08/12/15 Order Analyst Relationship Specialty Start Date End Date Reny Amanda, PIGMENT PROCESSOR.CUSTOMER ORDER CLERK [address] [place] [address] PCP - General Family Medicine 08/12/15 Order Analyst Relationship Specialty Start Date End Date Reny Amanda, PIGMENT PROCESSOR.CUSTOMER ORDER CLERK [address] [place] [address] PCP - General Family Medicine 08/12/15 Order Analyst Relationship Specialty Start Date End Date Reny Amanda, PIGMENT PROCESSOR.CUSTOMER ORDER CLERK [address] [place] [address] PCP - General Family Medicine 08/12/15 FOR RECORDS PERTAINING TO PATIENTS WHO ARE OR HAVE BEEN ENROLLED IN A CHEMICAL DEPENDENCY/SUBSTANCEABUSE PROGRAM, SOME INFORMATION MAY BE OMITTED. This clinical summary was aggregated from multiple sources. Caution should be exercised in using it in the provision of clinical care. This summary normalizes information from multiple sources, and as a consequence, information in this document may materially change the coding, format and clinical context of patient data. In addition, data may be omitted in some cases. CLINICAL DECISIONS SHOULD BE BASED ON THE PRIMARY CLINICAL RECORDS. [employer] [facility]. provides no warranty or guarantee of the accuracy or completeness of information in this document.
== END | disposition home or self-care (01) ==
PROVIDERS: PCP Nurse Practitioner; Referring Provider Nurse Practitioner; Visit Provider Nurse Practitioner
DX: N30.90 Cystitis, unspecified without hematuria (principal)
CPT/HCPCS: 87077; 87086; 87088; 87186

== ENCOUNTER → 2024-06-04 | Outpatient (CLI) | payer MEDICARE, BC, SELFPAY ==
[2024-06-04 21:27] LABS: Ferritin 25 ng/mL (8-252); Iron Binding Capacity,Total 384 ug/dL (250-450); Thyroid Stim Hormone (TSH) 0.791 uIU/mL (0.358-3.740)
[2024-06-12 13:08] LABS: VITAMIN B6 36.1 ug/L (3.4-65.2)
== END | disposition home or self-care (01) ==
PROVIDERS: PCP Nurse Practitioner; Referring Provider Nurse Practitioner; Visit Provider Nurse Practitioner
DX: R79.0 Abnormal level of blood mineral (principal); M06.9 Rheumatoid arthritis, unspecified; R41.89 Other symptoms and signs involving cognitive functions and awareness; R63.5 Abnormal weight gain
CPT/HCPCS: 82728; 82746; 83550; 83735; 84207; 84443